=== PATIENT | female | born 1990 | race Two or more races ===

== ENCOUNTER 2023-04-24 13:30 | Inpatient (IN) | payer OTHER ==
[~2023-04-24] VITALS: Ht 121.9 cm; Wt 85.7 kg
[2023-05-04 07:15] LABS: PH,URINE 6.5 (5.0-8.0); URINE APPEARANCE Cloudy; URINE BILIRRUBIN Negative (NEGATIVE); URINE BLOOD Negative; URINE COLOR Yellow; URINE GLUCOSE Negative (NEGATIVE); URINE LEUKOCYTE Moderate; URINE NITRATE Negative; URINE PROTEIN Negative (NEGATIVE)
[2023-05-04 07:16] LABS: URINE BACTERIA 1375.8 uL (0.0-1933); URINE EPITHELIAL CELLS 66.4 uL (0.0-38.8); URINE RBC 6.7 uL (0.0-20.8); URINE WBC 77.5 uL (0.0-23.2)
[2023-05-04 07:27] LABS: URINE MUCUS MODERATE
[2023-05-04 08:08] LABS: HEMATOCRIT 35.8 % (36.0-45.00); HEMOGLOBIN 12.3 g/dL (12.0-15.00); MEAN CELL VOLUME 87.6 fL (80.00-100.00); MEAN CORPUSCULAR HEMOGLOBIN 30.1 pg (27.00-32.0); MEAN CORPUSCULAR HGB CONC 34.4 g/dl (32.0-36.0); PLATELET COUNT 161 K/uL (150-450); RED BLOOD COUNT 4.09 M/uL (4.00-6.00); RED CELL DISTRIBUTION WIDTH 13.3 % (11.5-14.5)
[2023-05-04 08:43] LABS: INR < 0.93; PARTIAL THROMBOPLASTIN TIME 29.9 SECONDS (22.0-34.0); PROTHROMBIN TIME 9.6 SECONDS (9.0-11.5)
[2023-05-04 08:56] LABS: ALBUMIN 2.7 gm/dL (3.4-5.0); BILIRUBIN TOTAL 0.37 mg/dL (0.3-1.2); CALCIUM 8.6 mg/dL (8.5-10.1); CREATININE SERUM 0.42 mg/dL (0.55-1.02); GFR 173.76; GLOBULINA 3.3 G/DL (2.4-3.5); POTASSIUM 3.75 mEq/L (3.5-5.1)
[2023-05-04] MEDS ORDERED: MISOPROSTOL 25 MCG/4 ML GEL.W.APPL VAG ONE (09:00)
[2023-05-04] MEDS ORDERED: PRENATAL + DHA1 EACH PO (09:31)
[2023-05-04] MEDS ORDERED: ECOTRIN81 MG PO (09:32)
[2023-05-04] MEDS ORDERED: IRON325 MG PO (09:32)
[2023-05-04] MEDS ORDERED: OXYTOCIN 20 UNITS/500ML RL PIGGYBAG IV ONE (13:04)
[2023-05-04] MEDS ORDERED: OXYTOCIN 500 ML IV SCH (13:45)
[2023-05-04] MEDS ORDERED: PROMETHAZINE HCL 25 MG/ML AMPUL ONE (14:13)
[2023-05-04] MEDS ORDERED: PROMETHAZINE HCL 50 MG/ML AMPUL IV ONE (14:15)
[2023-05-04] MEDS ORDERED: MEPERIDINE HCL/PF 50 MG/ML VIAL IV ONE (14:15)
[2023-05-04] MEDS ORDERED: OXYTOCIN 10 UNITS/ML VIAL ONE (18:10)
[2023-05-04] MEDS ORDERED: ERYTHROMYCIN BASE 3.5 GM OINT...G. OP ONE (18:10)
[2023-05-04] MEDS ORDERED: OXYTOCIN 10 UNITS/ML VIAL IV ONE (19:45)
[2023-05-04] MEDS ORDERED: ERYTHROMYCIN BASE 1 GM TUBE OP ONE (19:45)
[2023-05-04] MEDS ORDERED: CEFAZOLIN SODIUM 1,000 MG VIAL IV ONE (20:15)
[2023-05-04] MEDS ORDERED: KETOROLAC TROMETHAMINE 60 MG VIAL IM ONE (21:15)
[2023-05-04] MEDS ORDERED: PROMETHAZINE HCL 50 MG/ML AMPUL IV SCH (21:15)
[2023-05-04] MEDS ORDERED: MEPERIDINE HCL/PF 50 MG/ML VIAL IV SCH (21:15)
[2023-05-04 23:01] LABS: ABG pCO2 60.7 mmHg (35-45)
[2023-05-04 23:02] LABS: ABG PO2 23.2 mmHg (80-100)
[2023-05-04 23:03] LABS: BICARBONATE 20.7 mmol/l (23-25); SaO2 23.9 %; Tco2 22.6 mmol/l; o2 21 %
[2023-05-05 02:00] LABS: HEMATOCRIT 31.4 % (36.0-45.00); MEAN CELL VOLUME 88.9 fL (80.00-100.00); MEAN CORPUSCULAR HGB CONC 35.2 g/dl (32.0-36.0); PLATELET COUNT 138 K/uL (150-450); RED BLOOD COUNT 3.53 M/uL (4.00-6.00); RED CELL DISTRIBUTION WIDTH 13.3 % (11.5-14.5)
[2023-05-05 02:03] LABS: MEAN CORPUSCULAR HEMOGLOBIN 31.1 pg (27.00-32.0)
[2023-05-05] MEDS ORDERED: KETOROLAC TROMETHAMINE 30 MG VIAL ONE (05:57)
[2023-05-05] MEDS ORDERED: PROMETHAZINE HCL 25 MG/ML AMPUL ONE (05:57)
[2023-05-05] MEDS ORDERED: OxyCODONE HCL/APAP UD (PERCOCET) PO SCH (08:00)
[2023-05-05] MEDS ORDERED: DOCUSATE CALCIUM 240 MG CAPSULE PO SCH (09:00)
[2023-05-05] MEDS ORDERED: SIMETHICONE 125 MG CAPSULE PO SCH (09:00)
[2023-05-06 06:45] LABS: HEMATOCRIT 28.7 % (36.0-45.00); MEAN CELL VOLUME 88.7 fL (80.00-100.00); MEAN CORPUSCULAR HEMOGLOBIN 30.7 pg (27.00-32.0); MEAN CORPUSCULAR HGB CONC 34.7 g/dl (32.0-36.0); PLATELET COUNT 149 K/uL (150-450); RED BLOOD COUNT 3.24 M/uL (4.00-6.00); RED CELL DISTRIBUTION WIDTH 13.7 % (11.5-14.5)
== END 2023-05-07 13:45 | disposition home or self-care (01) | DRG 788 ==
LOC: LDR 05-03 13:30 → OB/GYN 05-04 04:57 → LDR 05-04 05:19 → OB/GYN 05-04 22:20
PROVIDERS: Obstetrics & Gynecology; ADMIT Specialist; ATTEND Specialist
PROC: 4A1HXCZ Monitoring of Products of Conception, Cardiac Rate, External Approach (ICD-10-PCS; 2023-05-04)
PROC: 3E033VJ Introduction of Other Hormone into Peripheral Vein, Percutaneous Approach (ICD-10-PCS; 2023-05-04)
PROC: 3E0P7VZ Introduction of Hormone into Female Reproductive, Via Natural or Artificial Opening (ICD-10-PCS; 2023-05-04)
PROC: 10D00Z1 Extraction of Products of Conception, Low, Open Approach (ICD-10-PCS; principal; 2023-05-04 17:00)
DX: O62.1 Secondary uterine inertia (principal); Z3A.40 40 weeks gestation of pregnancy; Z37.0 Single live birth; Z20.822 Contact with and (suspected) exposure to COVID-19